=== PATIENT | female | born 1955 | race Caucasian/White ===

== ENCOUNTER 2024-01-14 13:20 | Observation (INO) ==
[~2024-01-14 13:20] MED LIST: Lidocaine 2% PF 5 ML VIAL ONE; Metoclopramide 5 MG/ML VIAL (10 mg) IV PRN; NS 0.45% 1000 ml BAG 1,000 ML IV SCH; Naloxone 0.4 mg VIAL 0.4 mg/ml 1 ml VIAL IV PRN; Ondansetron 4 mg VIAL 2 MG/ML 2 ml VIAL IV PRN; Propofol 10 MG/ML 20 ML BTL ONE
[2024-01-14] MEDS ORDERED: Tranexamic Acid 1 GM/100ML BAG 2,000 MG/200 ML BAG IV ONE (13:48)
[2024-01-14] MEDS ORDERED: ceFAZolin 2 GM PREMIX 2 GM/50 ML BAG ONE (13:51)
[2024-01-14 14:04] LABS: Rapid COVID-19 Molecular Undetected (Undetected)
[2024-01-14] MEDS: Lactated Ringers 1000 ml BAG 1,000 ML IV SCH ×2 (14:21→20:15)
[2024-01-14] MEDS: Buffered Lidocaine 1% SYRIN 1 ml INTRADERM ONE (14:21)
[2024-01-14] MEDS ORDERED: ROPIVACAINE 5 MG/ML 30 ML BTL (0.5%) ONE ×2 (14:53→17:13)
[2024-01-14] MEDS ORDERED: Midazolam 2 mg/2 ml VIAL 1 mg/ml 2 ml VIAL (2 mg) ONE ×2 (14:54→15:47)
[2024-01-14] MEDS ORDERED: Lidocaine 2% PF 5 ML VIAL ONE (14:54)
[2024-01-14] MEDS ORDERED: fentaNYL 100 mcg/2 ml 50 MCG/ML VIAL ONE ×3 (14:54→18:51)
[2024-01-14] MEDS ORDERED: Ondansetron 4 mg VIAL 2 MG/ML 2 ml VIAL IV PRN (15:13)
[2024-01-14] MEDS ORDERED: Magnesium Hydroxide LIQ 30 ML UDC PO PRN (15:13)
[2024-01-14] MEDS ORDERED: Calcium Carb (TUMS) 500 mg CHEW TAB PO PRN (15:13)
[2024-01-14] MEDS ORDERED: Morphine 2 MG/ML SYRINGE IV PRN (15:13)
[2024-01-14] MEDS ORDERED: Lactulose 30 ml UDC PO PRN (15:13)
[2024-01-14] MEDS ORDERED: Ondansetron ODT 4 mg TAB 4 MG TAB PO PRN (15:13)
[2024-01-14] MEDS ORDERED: KETAMINE HCL 10 MG/ML 20 ml VIAL (200 MG) ONE (15:59)
[2024-01-14] MEDS ORDERED: ceFAZolin VIAL VIAL ONE (16:03)
[2024-01-14] MEDS ORDERED: Ondansetron 4 mg VIAL 2 MG/ML 2 ml VIAL ONE (16:37)
[2024-01-14] MEDS ORDERED: Propofol 10 MG/ML 20 ML BTL ONE ×2 (16:58→17:34)
[2024-01-14] MEDS: fentaNYL 100 mcg/2 ml 50 MCG/ML VIAL IV PRN (18:51)
[2024-01-14] MEDS: Scopolamine 1 mg/72hr PATCH TRANSDERM ONE (22:20)
[2024-01-14] MEDS: Acetaminophen IV 1 GM/100ML 1,000 MG/100 ML BAG IV ONE (22:20)
[2024-01-14] MEDS: Magnesium Hydroxide LIQ 30 ML UDC PO SCH (22:21)
[2024-01-15] MEDS: ceFAZolin 2 GM PREMIX 2 GM/50 ML BAG IV SCH (00:02)
[2024-01-15 06:10] LABS: Hematocrit 34.1 % (35-45); Hemoglobin 11.4 g/dL (11.5-14.3); Mean Platelet Volume 8.3 fL (7.5-11.2); Platelet Count 243 10^3/uL (150-450)
[2024-01-15 06:29] LABS: Calcium 8.7 mg/dL (8.6-10.3); Creatinine, Serum 1.29 mg/dL (0.51-0.95); Potassium 4.3 mmol/L (3.5-5.0); eGFR CKD-EPI 45.5 (>60)
[2024-01-15 09:22] VITALS: BP 138/75
[2024-01-15] MEDS: Vitamin THERAPEUTIC TAB PO SCH (09:48)
== END 2024-01-15 17:20 | disposition home or self-care (01) ==
LOC: OR 13:20 → SSU 13:20
PROVIDERS: ADMIT Orthopaedic Surgery Adult Reconstructive Orthopaedic Surgery; ATTEND Orthopaedic Surgery Adult Reconstructive Orthopaedic Surgery